=== PATIENT | female | born 1995 | race Caucasian/White ===

== ENCOUNTER 2017-04-15 18:51 | Emergency (ER) | payer BC ==
[2017-04-15] MEDS ORDERED: OXYCODONE HCL IR 5 MG TABLET PO ONE (19:51)
--- NOTE | 2017-04-15 19:57 | ER Document Report ---
HPI - HPI Pain Level: 4 Notes: Patient is a 22-year-old female presented to ED complaining of left knee pain and swelling status post fall off a horse just prior to arrival. Patient states that the pain does not radiate. She has a "stinging" pain as well as a throbbing pain. Patient states that she was able to walk initially but with the increase in swelling she has had decreased range of motion. She can still feel her toes and move her feet without any difficulties. Patient states that she does have an abrasion to her left knee from the sand that she fell into. No other concerns or complaints. Denies any drug allergies, daily medications, significant past medical history. Patient denies smoking or illicit drug use. She does not have a PCM. Any fever, head injury, headache, neck pain, URI, sore throat, chest pain, palpitations, syncope, cough, wheeze, shortness of breath, dyspnea, abdominal pain, nausea/vomiting/diarrhea, hematuria, dysuria, muscle weakness/paralysis, numbness/tingling, rash - ROS Notes: REVIEW OF SYSTEMS: CONSTITUTIONAL : Denies fever, chills, or sweats. Denies recent illness. EENT: Denies eye, ear, throat, or mouth pain or symptoms. Denies nasal or sinus congestion or discharge. Denies throat, tongue, or mouth swelling or difficulty swallowing. CARDIOVASCULAR: Denies chest pain. Denies palpitations or racing or irregular heart beat. Denies ankle edema. RESPIRATORY: Denies cough, cold, or chest congestion. Denies shortness of breath, difficulty breathing, or wheezing. GASTROINTESTINAL: Denies abdominal pain or distention. Denies nausea, vomiting , or diarrhea. Denies blood in vomitus, stools, or per rectum. Denies black, tarry stools. Denies constipation. GENITOURINARY: Denies difficulty urinating, painful urination, burning, frequency, blood in urine, or discharge. MUSCULOSKELETAL: see hpi SKIN: see hpi NEUROLOGICAL: Denies confusion or altered mental status. Denies passing out or loss of consciousness. Denies dizziness or lightheadedness. Denies headache. Denies weakness or paralysis or loss of use of either side. Denies problems with gait or speech. Denies sensory loss, numbness, or tingling. ALL OTHER SYSTEMS REVIEWED AND NEGATIVE. Dictation was performed using [employer] voice recognition software - CARDIOVASCULAR Cardiovascular: DENIES: Chest pain - DERM Skin Color: Normal Past Medical History - Social History Smoking Status: Never Smoker Frequency of alcohol use: None Drug Abuse: None Family History: Reviewed & Not Pertinent Patient has suicidal ideation: No Patient has homicidal ideation: No Renal/ Medical History: Denies: Hx Peritoneal Dialysis Surgical Hx: Negative - Immunizations Hx Diphtheria, Pertussis, Tetanus Vaccination: No Vertical Provider Document - CONSTITUTIONAL Agree With Documented VS: Yes Notes: PHYSICAL EXAMINATION: GENERAL: Well-appearing, well-nourished and in no acute distress. HEAD: Atraumatic, normocephalic. NECK: Normal range of motion, supple without lymphadenopathy. No rigidity/ midline tenderness. LUNGS: Breath sounds clear to auscultation bilaterally and equal. No wheezes rales or rhonchi. HEART: Regular rate and rhythm without murmurs, rubs, gallops. ABDOMEN: Soft, nontender, nondistended abdomen. No guarding, no rebound. No masses appreciated. Normal bowel sounds present. No CVA tenderness bilaterally. No ecchymosis. Musculoskeletal: Left knee: LROM to passive/active. Strength 4+/5. + effusion, swelling, mild ecchymosis. + superficial abrasion to the skin. + tenderness. Unable to fully test ligaments and meniscus due to effusion and patient pain. N /V intact distal. Extremities: No cyanosis, clubbing, or edema b/l. Peripheral pulses 2+. Capillary refill less than 2 seconds. NEUROLOGICAL: Normal sensory, motor exams PSYCH: Normal mood, normal affect. SKIN: Warm, Dry, normal turgor, no rashes or lesions noted. - INFECTION CONTROL TRAVEL OUTSIDE OF THE [place] IN LAST 30 DAYS: No - RESPIRATORY O2 Sat by Pulse Oximetry: 99 Course - Re-evaluation Re-evalutation: 04/15/17 20:40 Patient is an afebrile, well-hydrated, 22-year-old female presents the ED with left knee pain and swelling s/p fall. Suspect internal knee etiology, meniscal versus ligament. Vitals are stable. PE otherwise unremarkable. XR neg for acute fracture/dislocation. Knee immobilizer placed and crutches given. Rice protocol and conservative measures encouraged. Low suspicion for any septic arthritis, sepsis. I will send the patient home with a short course of pain medication and meloxicam. Abrasion was thoroughly cleaned and wound dressing placed with bacitracin by the PCT. Patient to call orthopedic office tomorrow for further evaluation she does not have a PCM. Patient may need an MRI. Reviewed case with the patient and father. Establish with a PCM within the next week. Patient and father are both in agreement. - Vital Signs Vital signs: Temp Pulse Resp BP Pulse Ox 98.1 F 76 18 123/68 99 04/15/17 19:00 04/15/17 19:00 04/15/17 19:00 04/15/17 19:00 04/15/17 19:00 Discharge - Discharge Clinical Impression: Left knee pain Qualifiers: Chronicity: acute Qualified Code(s): M25.562 - Pain in left knee Condition: Stable Instructions: Suspected Internal Knee Injury ([facility]), Knee Effusion ([facility]), Knee Immobilizing Splint ([facility]), Oral Narcotic Medication ([facility]) Additional Instructions: Rest, Ice, Compression, Elevation Use splint as directed Tylenol/ibuprofen as needed Light stretches daily Strength exercises as able Moist heat and massage may help Establish with PCM for recheck within the next week Call Orthopedics tomorrow to schedule an appointment for further evaluation. Return to the ED with any worsening symptoms and/or development of fever, headache, chest pain, palpitations, syncope, shortness of breath, trouble breathing, abdominal pain, n/v/d, blood in stool/urine, loss of control of bowel /bladder, urinary retention, muscle weakness/paralysis, numbness/tingling, or other worsening symptoms that are concerning to you. Prescriptions: Meloxicam 7.5 mg PO BID PRN #20 tablet PRN Reason: Oxycodone HCl [Oxycodone HCl 10 MG Tablet] 1 - 2 tab PO Q6H PRN #15 tablet PRN Reason: PAIN Referrals: [facility] ([facility]) [Provider Group] - Follow up in 3-5 days
--- NOTE | 2017-04-15 20:17 | RADIOLOGY REPORT (SQ) ---
EXAM DESCRIPTION: KNEE LEFT 4 VIEW COMPLETED DATE/TIME: 04/15/2017 8:07 pm REASON FOR STUDY: Left knee pain, effusion, injury s/p fall COMPARISON: None. NUMBER OF VIEWS: Four views. TECHNIQUE: AP, lateral, and both oblique radiographic images acquired of the left knee. LIMITATIONS: None. FINDINGS: MINERALIZATION: Normal. BONES: No acute fracture or dislocation. No worrisome bone lesions. JOINT: Joint effusion. SOFT TISSUES: Soft tissue swelling. No radio-opaque foreign body. OTHER: No other significant finding. IMPRESSION: SOFT TISSUE SWELLING AND JOINT EFFUSION. NO ACUTE BONY FINDINGS. TECHNICAL DOCUMENTATION: JOB ID: [id number] [employer]- All Rights Reserved
[2017-04-15 20:59] VITALS: BP 120/64
== END 2017-04-15 20:58 | disposition home or self-care (01) ==
LOC: ER 18:51
DX: M25.562 Pain in left knee (principal); M79.89 Other specified soft tissue disorders; W19.XXXA Unspecified fall, initial encounter
CPT/HCPCS: 99283; 73562; L1830